=== PATIENT | female | born 1950 | race Caucasian/White ===

== ENCOUNTER → 2017-09-10 | Outpatient (CLI) | payer MEDICARE ==
[2016-10-05 08:57] VITALS: BP 150/79
[~2017-09-10] MED LIST: HYDR-2678 PO; HYDR-2867 PO; IOHEXOL 180 MG/ML 10 ML VIAL. ONE; OMEP20CA9 PO; methylPREDNISolone ACETATE 40 MG/ML VIAL. ONE; methylPREDNISolone ACETATE 80 MG/ML VIAL. ONE
--- NOTE | 2017-09-10 19:05 | PAIN ---
DATE OF SERVICE: 09/10/2017 DIAGNOSES: Lumbar radiculopathy with lumbar degenerative disk disease, lumbar spondylosis. HISTORY OF PRESENT ILLNESS: The patient is a 67-year-old female who returns for followup status post lumbar epidural steroid injection x 1. The patient reports about 50% improvement overall, especially in the back. Still some pain in the right lower extremity, mostly in the anterior thigh, medial thigh, into the lower leg medially and some on the posterior leg with some cramping as well, but much better than prior to the first injection. The patient reports it is a 9 on a scale of 10 at its worst, a 6 on average and a 5 at its least, is a 5 today. The patient reports pain is tight, tingling, cramping, stabbing, becoming constant. Again did very well the first few weeks after the injection with increased activity, greater ease and comfort, was sleeping better, starting to awaken her from sleep again. Now, she lays on her right side, but she needs to reposition and get back to sleep after a couple of hours. The patient reports there is some cramping in the right leg as well. Reports no new motor or sensory deficits, no new bowel or bladder incontinence or other complaints. PHYSICAL EXAMINATION: VITAL SIGNS: The patient's blood pressure 140/82, pulse 72, respirations 18, temperature is 98.2 degrees Fahrenheit, height is 5 feet 1 inch, weighs 117 pounds. GENERAL: The patient is awake, alert, oriented, appropriate, very pleasant demeanor. HEENT: Head shows normocephalic, atraumatic. Extraocular muscles are intact and symmetrical. Oral cavity: Mucous membranes moist and pink. Dentition is intact. NECK: Shows anterior throat supple without palpable lymphadenopathy noted. Swallow reflex is symmetrical. CHEST: Shows normal on inspection. Breath sounds are clear to auscultation bilaterally. HEART: Shows S1, S2 clear. No murmurs auscultated. ABDOMEN: Soft, nontender, nondistended. No palpable organomegaly is noted. BACK: Shows spine grossly in midline. Normal appearing thoracic kyphosis and lumbar lordotic curvature. Lumbar paraspinous muscle shows symmetrical on inspection with palpation shows some moderate tenderness bilaterally, but only diffusely with palpation. No radiation, no asymmetry. The patient has good rotational motion both laterally as well as extension and flexion without significant difficulty. No tenderness over the sacrum or sacroiliac regions. EXTREMITIES: Lower extremities show deep tendon reflexes 2+ in the patellar, 1+ tendo calcaneus tendons. Motor exam is approximately 4 on a scale of 5 with right dorsiflexion, extension, 5/5 on the left. Peripheral pulses are 1+ posterior tibial. No peripheral edema is noted bilaterally. Options were discussed with the patient. The patient's old chart was reviewed as her current medication regimen and updated. Current review of systems is updated today as well. We will proceed with a second in the series of lumbar epidural steroid injection with fluoroscopic guidance. Risks were again discussed including, but not limited to bleeding, infection, possibility of epidural hematoma, subsequent neurologic compromise, dural puncture, headaches, spinal cord and/or nerve damage, side effects of steroid medication and poor results regarding pain control. The patient understands and wished to proceed. The patient will return to clinic in approximately 2 weeks for followup. She was counseled on return appointment, activity level and side effects to be aware of. DIAGNOSES: Lumbar radiculopathy with lumbar spondylosis, lumbar degenerative disk disease. PROCEDURES: Lumbar epidural steroid injection, translaminar approach L3-L4 level using C-arm fluoroscopic guidance under sterile prep and drape using local anesthetic. MEDICATION INJECTED: A total of 120 mg Depo-Medrol plus 10 mL preservative-free normal saline and 2 mL of Isovue for contrast. CONDITION AT DISCHARGE: Stable. The patient tolerated procedure well, had no complications. ALYSA GOMES MD DR: REJI/kerwin JOB#: [id number] / [id number]
== END ==
LOC: PNCL 09:20
PROVIDERS: ATTEND Anesthesiology
DX: M47.26 Other spondylosis with radiculopathy, lumbar region (principal); M51.36 Other intervertebral disc degeneration, lumbar region; I10 Essential (primary) hypertension; K21.9 Gastro-esophageal reflux disease without esophagitis; M19.90 Unspecified osteoarthritis, unspecified site; Z98.890 Other specified postprocedural states; F17.200 Nicotine dependence, unspecified, uncomplicated; Z86.19 Personal history of other infectious and parasitic diseases
CPT/HCPCS: 62323; J1030; J1040

== ENCOUNTER 2018-07-03 22:02 | Inpatient (IN) | payer MEDICARE ==
[~2018-07-03] VITALS: Ht 154.9 cm; Wt 52.2 kg
[~2018-07-03 22:02] MED LIST changes: -IOHEXOL 180 MG/ML 10 ML VIAL. ONE; -methylPREDNISolone ACETATE 40 MG/ML VIAL. ONE; -methylPREDNISolone ACETATE 80 MG/ML VIAL. ONE
[2018-07-03 22:39] LABS: BASO # 0.1 x10^3/uL (0.0-0.2); BASO % 1 % (0-3); EOS # 0.2 x10^3/uL (0.0-0.7); EOS % 2 % (0-3); HEMATOCRIT 39.9 % (36.0-47.0); HEMOGLOBIN 14.2 g/dL (12.0-15.5); LYMPH % 37 % (24-48); MEAN CORPUSCULAR HEMOGLOBIN 31 pg (25-35); MEAN CORPUSCULAR HGB CONC 36 g/dL (31-37); MEAN CORPUSCULAR VOLUME 88 fL (79-100); MONO # 0.7 x10^3/uL (0.0-1.1); MONO % 9 % (0-9); NEUT # 4.2 x10^3uL (1.8-7.7); NEUT % 52 % (31-73); PLATELET COUNT 223 x10^3/uL (140-400); RED BLOOD COUNT 4.54 x10^6/uL (3.50-5.40); RED CELL DISTRIBUTION WIDTH 12.9 % (11.5-14.5); WHITE BLOOD COUNT 8.1 x10^3/uL (4.0-11.0)
[2018-07-03 22:48] LABS: PROTHROMBIN TIME PATIENT 13.5 SEC (11.7-14.0)
[2018-07-03 22:58] LABS: ALBUMIN 3.4 g/dL (3.4-5.0); ALBUMIN/GLOBULIN RATIO 0.7 (1.0-1.7); CALCIUM 9.4 mg/dL (8.5-10.1); CREATININE 0.8 mg/dL (0.6-1.0); GFR 71.1; MAGNESIUM 2.3 mg/dL (1.8-2.4); TOTAL BILIRUBIN 0.6 mg/dL (0.2-1.0); TOTAL PROTEIN 8.1 g/dL (6.4-8.2)
[2018-07-03 23:00] LABS: POTASSIUM 2.2 mmol/L (3.5-5.1)
[2018-07-03] MEDS ORDERED: POTASSIUM CHLORIDE 20 MEQ TABLET.ER. PO ONE (23:15)
--- NOTE | 2018-07-03 23:51 | PHYS DOC ---
Past Medical History Past Medical History: Hypertension, Hepatitis, Other Additional Past Medical Histor: chronic pain, cured hep c Past Surgical History: Other Alcohol Use: None Drug Use: Marijuana Adult General Chief Complaint Chief Complaint: CHEST PAIN HPI HPI Patient is a 68 year old female with past medical history of hepatitis C and anxiety who presents with 2 days of left-sided sharp chest pain. Patient notes she first experienced this pain yesterday while she was driving. The patient denies any association of the pain with exertion. The patient notes that the pain lasted for approximately 2 hours with a severity of 7 out of 10. The patient endorses nausea and shortness of breath. The patient denies radiation of the pain, diaphoresis, pleuritic pain, headache, abdominal pain, or lower extremity pain. The patient did not seek medical attention and noted that the pain resolved spontaneously. This evening she had a recurrence of the pain but notes that the pain was different this time in that it was less severe with a severity at a 4 out of 10 and it set of a sharp feeling it was more of a pressure today. The patient notes that the pain has since stopped. Patient notes she has had a lot of cramping in her bilateral legs for the last several weeks. Review of Systems Review of Systems Constitutional: Denies fever or chills [] Eyes: Denies change in visual acuity, redness, or eye pain [] HENT: Notes nasal congestion or sore throat [] Respiratory: Notes cough and shortness of breath [] Cardiovascular: No chest pain denies palpitations[] GI: Denies abdominal pain, vomiting, bloody stools or diarrhea [] : Denies dysuria or hematuria [] Musculoskeletal: Denies back pain or joint pain. Notes cramping [] Integument: Denies rash or skin lesions [] Neurologic: Denies headache, focal weakness or sensory changes [] Complete systems were reviewed and found to be within normal limits, except as documented in this note. Current Medications Current Medications Current Medications Medications (Trade) Dose Ordered Sig/Ritesh Start Time Stop Time Status Last Admin Dose Admin Potassium Chloride (Klor-Con) 60 meq 1X ONCE 07/03/18 23:15 07/03/18 23:16 DC 07/03/18 23:15 60 MEQ Allergies Allergies Physical Exam Physical Exam Constitutional: Well developed, well nourished, no acute distress, non-toxic appearance. [] HENT: Normocephalic, atraumatic, bilateral external ears normal, oropharynx moist, no oral exudates, nose normal. [] Eyes: PERRL, EOMI, conjunctiva normal, no discharge. [] Neck: Normal range of motion, no tenderness, supple, no stridor. [] Cardiovascular:Heart rate regular rhythm, no murmur [] Lungs & Thorax: Bilateral breath sounds clear to auscultation, denies chest wall tenderness to palpation[] Abdomen: Bowel sounds normal, soft, no tenderness, no pulsatile masses. [] Skin: Warm, dry, no erythema, no rash. [] Back: No tenderness, no CVA tenderness. [] Extremities: No calf tenderness, ROM intact, no edema. [] Neurologic: Alert and oriented X 3, normal motor function, normal sensory function, no focal deficits noted. [] Psychologic: Affect normal, judgement normal, mood normal. [] Current Patient Data Vital Signs Vital Signs Date Time Temp Pulse Resp B/P (MAP) Pulse Ox O2 Delivery O2 Flow Rate FiO2 07/03/18 23:26 78 18 112/76 (88) 99 07/03/18 22:11 97.9 Room Air 97.9 Lab Values Laboratory Tests Test 07/03/18 22:30 White Blood Count 8.1 x10^3/uL (4.0-11.0) Red Blood Count 4.54 x10^6/uL (3.50-5.40) Hemoglobin 14.2 g/dL (12.0-15.5) Hematocrit 39.9 % (36.0-47.0) Mean Corpuscular Volume 88 fL (79-100) Mean Corpuscular Hemoglobin 31 pg (25-35) Mean Corpuscular Hemoglobin Concent 36 g/dL (31-37) Red Cell Distribution Width 12.9 % (11.5-14.5) Platelet Count 223 x10^3/uL (140-400) Neutrophils (%) (Auto) 52 % (31-73) Lymphocytes (%) (Auto) 37 % (24-48) Monocytes (%) (Auto) 9 % (0-9) Eosinophils (%) (Auto) 2 % (0-3) Basophils (%) (Auto) 1 % (0-3) Neutrophils # (Auto) 4.2 x10^3uL (1.8-7.7) Lymphocytes # (Auto) 3.0 x10^3/uL (1.0-4.8) Monocytes # (Auto) 0.7 x10^3/uL (0.0-1.1) Eosinophils # (Auto) 0.2 x10^3/uL (0.0-0.7) Basophils # (Auto) 0.1 x10^3/uL (0.0-0.2) Prothrombin Time 13.5 SEC (11.7-14.0) Prothrombin Time INR 1.1 (0.8-1.1) D-Dimer (Annamarie) 0.45 ug/mlFEU (0.00-0.50) Sodium Level 140 mmol/L (136-145) Potassium Level 2.2 mmol/L (3.5-5.1) *L Chloride Level 98 mmol/L (98-107) Carbon Dioxide Level 35 mmol/L (21-32) H Anion Gap 7 (6-14) Blood Urea Nitrogen 8 mg/dL (7-20) Creatinine 0.8 mg/dL (0.6-1.0) Estimated GFR (Cockcroft-Gault) 71.1 BUN/Creatinine Ratio 10 (6-20) Glucose Level 93 mg/dL (70-99) Calcium Level 9.4 mg/dL (8.5-10.1) Magnesium Level 2.3 mg/dL (1.8-2.4) Total Bilirubin 0.6 mg/dL (0.2-1.0) Aspartate Amino Transferase (AST) 22 U/L (15-37) Alanine Aminotransferase (ALT) 16 U/L (14-59) Alkaline Phosphatase 68 U/L (46-116) Creatine Kinase 79 U/L (26-192) Troponin I Quantitative < 0.017 ng/mL (0.000-0.055) NL-Puh-R-Type Natriuretic Peptide 139 pg/mL (0-124) H Total Protein 8.1 g/dL (6.4-8.2) Albumin 3.4 g/dL (3.4-5.0) Albumin/Globulin Ratio 0.7 (1.0-1.7) L Lipase 184 U/L (73-393) Laboratory Tests 07/03/18 22:30 Laboratory Tests 07/03/18 22:30 EKG EKG @2224 NSR, rate 71, QRS 108, QTc 481, SC 198. Widespread U waves noted most significant in anterior leads. No acute ischemic changes noted.[] Radiology/Procedures Radiology/Procedures PA&Lateral chest x-ray (preliminary interpretation by ED physician)- evidence of mild bibasilar atelectasis, no infiltrates seen.[] Course & Med Decision Making Course & Med Decision Making 68-year-old female with 2 days of left sided chest pain. Patient notes pain started yesterday while she was driving lasted for 2 hours was described as sharp with no association to exertion. Patient also denies any radiation of the pain and diaphoresis, or pleuritic pain. Patient then had another episode of chest pain this evening which she said was less severe and describes it more as a pressure. Patient not currently having chest pain on arrival to the ED. Patient also endorses a recent history of a lot of cramping in her legs. Labs collected and reviewed. Potassium was found to be 2.2. Patient was given 60 mEq of oral potassium. Slight elevation in BNP. First troponin negative. D-dimer negative. EKG does not show any evidence of acute ischemia but does show mild prolongation in QT and U waves consistent with hypokalemia. Patient requiring admission for further evaluation and treatment. Discussed with Dr. Ba who is in agreement with admission. Discussed findings and plan with patient, who acknowledge understanding and agreement. [] Dragon Disclaimer Dragon Disclaimer This electronic medical record was generated, in whole or in part, using a voice recognition dictation system. Departure Departure Impression: Primary Impression: Chest pain Additional Impression: Hypokalemia Disposition: ADMITTED INPATIENT Admitting Physician: Naz Ba Condition: STABLE Referrals: NAZ BA MD (PCP) Scripts No Active Prescriptions or Reported Meds Problem Qualifiers Primary Impression: Chest pain Chest pain type: unspecified Qualified Codes: R07.9 - Chest pain, unspecified FELICIANOSAKSHI DO Jul 03, 2018 23:51
[2018-07-04] MEDS ORDERED: ONDANSETRON PF 4 MG/2 ML VIAL. IV PRN (00:15)
[2018-07-04] MEDS ORDERED: fentaNYL PF VIAL 100 MCG/2 ML VIAL IV PRN (00:15)
[2018-07-04 02:00] VITALS: BP 148/68
[2018-07-04] MEDS ORDERED: NAPR220C4 PO (03:48)
[2018-07-04] MEDS ORDERED: AMLO10TA6 PO (03:48)
--- NOTE | 2018-07-04 06:15 | EKG ---
[facility] [address] [place] [address] Test Date: 2018-07-03 Test Time: 22:21:44 Pat Name: ERNA CHEUNG Department: Room: [facility] Gender: F Patient Services Assistant: : 1950 Requested By: SAKSHI FELICIANO Order Number: [id number] Reading MD: Alberto Grijalva Measurements Intervals [place] Rate: 71 P: 45 MA: 198 QRS: -41 QRSD: 108 T: 52 QT: 438 QTc: 481 Interpretive Statements SINUS RHYTHM ABNORMAL LEFT AXIS DEVIATION LEFT ANTERIOR FASCICULAR BLOCK PROLONGED QT ABNORMAL ECG No previous ECG available for comparison Electronically Signed On 07-08-2018 10:39:07 CDT by Alberto Grijalva
[2018-07-04 07:00] VITALS: BP 103/83
--- NOTE | 2018-07-04 08:04 | RAD ---
Chest, 2 views, 07/04/2018: HISTORY: Shortness of breath The heart size and pulmonary vascularity are normal. There is calcific plaquing of the aorta. No pulmonary infiltrate is seen. There is no evidence of pleural fluid. Mild spurring is present in the spine. IMPRESSION: No acute cardiopulmonary abnormality is detected. Electronically signed by: Dario Ramos MD (07/04/2018 8:01 AM) [facility]
[2018-07-04] MEDS ORDERED: HYDROcodone/APAP 5/325MG 1 TAB TABLET PO PRN (08:45)
[2018-07-04 09:01] LABS: CREATININE 0.7 mg/dL (0.6-1.0)
--- NOTE | 2018-07-04 09:05 | HP ---
ADMIT DATE: 07/03/2018 CHIEF COMPLAINT AND HISTORY OF PRESENT ILLNESS: This 68-year-old white female is well known to me, followup in the office. The patient presented to the Emergency Room with sharp, intermittent chest pain going on for the entire week off and on. She feels like it can last up to a couple of hours at a time. It is not associated with any other cardiac symptoms such as shortness of breath, dizziness, sweatiness or nausea. It seems to be more likely to happen when she gets upset by one of her family members and is going through a phenomenal amount of stress at home. She denies that there is any relationship to breathing with it. She has not had a cough, shortness of breath, anything else with this. She was seen in the Emergency Room and admitted with the chest pain, but predominantly for a potassium of 2.2, which I have no good explanation for this. The patient denies any nausea, vomiting or diarrhea leading up to this and she takes no medicines at home that normally would cause hypokalemia. PAST MEDICAL HISTORY: The patient's past medical history is remarkable for hypertension, hepatitis C and some chronic back pain. MEDICATIONS: Brought with the patient, listed on the computer and have been addressed. ALLERGIES: She has no known drug allergies. SOCIAL HISTORY: She does occasionally use marijuana. She does not use tobacco or alcohol. She is . FAMILY HISTORY: Noncontributory. REVIEW OF SYSTEMS: As mentioned above. PHYSICAL EXAMINATION: GENERAL: She is a well-developed, well-nourished white female, in no acute distress. She is emotional. VITAL SIGNS: Stable. She is afebrile. HEAD, EYES, EARS, NOSE AND THROAT: Remarkable for glasses. NECK: Supple without bruit or thyromegaly. CHEST: Clear to auscultation and percussion. HEART: Regular rate and rhythm without S3, S4, or murmur. ABDOMEN: Soft, nontender, without hepatosplenomegaly or masses. EXTREMITIES: Without cyanosis, clubbing or edema. NEUROLOGIC: She is intact. LABORATORY DATA: Initial lab work was is remarkable for potassium of 2.2. She has had three troponins that are negative. BNP was 139. Clotting tests are in normal limits. CBC was normal. Chest x-ray on admission shows no acute cardiopulmonary abnormality is detected. IMPRESSION: 1. Sharp chest pain, likely noncardiac. 2. Hypokalemia, profound. 3. Hypertension. PLAN: Potassium replacement as well as following potassium levels has been instituted. I am going to ask Cardiology to see her for opinion, although again I do not feel this is probably cardiac in nature, but uncertain as to what it might be for sure causing the chest pain. NAZ BA MD DR: TYLER/kerwin JOB#: [id number] / [id number]
[2018-07-04 09:11] LABS: POTASSIUM 2.5 mmol/L (3.5-5.1)
--- NOTE | 2018-07-04 10:19 | PDOC2 ---
CARDIAC CONSULT DATE OF CONSULT Date of Consult DATE: 07/04/18 TIME: 10:16 REASON FOR CONSULT Reason for Consult: Chest pain REFERRING PHYSICIAN Referring Physician: Appl SOURCE Source: Chart review, Patient HISTORY OF PRESENT ILLNESS HISTORY OF PRESENT ILLNESS This is a pleasant 68 yo female admitted for complains of leg cramps and chest pain. Reports that in the last 2 days she has been having more leg and foot cramps. Reports that she eats "like a bird" so not much nutritional intake and she had some bouts of watery diarrhea but no vomiting. However she did start to develop this sharp pain to her left chest which is nonradiating but no reproducible with palpation. This lasted for hours then became on and off. This actually started after working in her yard the other day to which she also moved some 15 lb rocks. She felt suddenly drained after that. She also had a bout of nausea. No jaw or arm pain and no complains of dizziness or palpitations. In the last few days she did noticed that walking in her long driveway to go to the mail box, she had to stop in between just to catch her breath. Denies any past CAD, VTE, arrhythmias, falls or any recent injury. She does take aleve 500 mg po bid for her arthritis and does not take any H2 juan or PPI. She admits that she is stressed out re family dynamics and she was recently started on zoloft so she thought that her symptoms is from that medicine. PAST MEDICAL HISTORY Cardiovascular: HTN, Other (hx of rheumatic heart fever) CENTRAL NERVOUS SYSTEM: Other (No pertinent history) GI: GERD Heme/Onc: No pertinent hx Hepatobiliary: Hep A/B/C (C treated 6 months ago) Psych: Anxiety, Depression Musculoskeletal: Osteoarthritis Rheumatologic: No pertinent hx Infectious disease: No pertinent hx ENT: No pertinent hx Renal/: No pertinent hx Endocrine: Other (thyroid disease unknown) Dermatology: No pertinent hx PAST SURGICAL HISTORY Past Surgical History: Arthroscopy (right leg repair), Other (?partial thyroidectomy?) FAMILY HISTORY Family History noncontributory to CV SOCIAL HISTORY Smoke: No ALCOHOL: none Drugs: Marijuana Lives: Alone CURRENT MEDICATIONS CURRENT MEDICATIONS Current Medications Medications (Trade) Dose Ordered Sig/Ritesh Route PRN Reason Start Time Stop Time Status Last Admin Dose Admin Potassium Chloride (Klor-Con) 60 meq 1X ONCE PO 07/03/18 23:15 07/03/18 23:16 DC 07/03/18 23:15 ALLERGIES ALLERGIES: Coded Allergies: No Known Drug Allergies (Unverified , 10/05/16) ROS Review of System 14 point ROS evaluated with pertinent positives noted per HPI PHYSICAL EXAM General: Alert, Oriented X3, Cooperative, No acute distress HEENT: Atraumatic, Mucous membr. moist/pink Lungs: Clear to auscultation, Normal air movement Heart: Regular rate (SR), Normal S1, Normal S2, Other (3/6 systolic murmur to RUTHIE and 2/6 systolic murmur to LLS border) Abdomen: Soft, No tenderness Extremities: No cyanosis, No edema Skin: No breakdown, No significant lesion Neuro: Normal speech, Sensation intact Psych/Mental Status: Mental status NL, Mood NL MUSCULOSKELETAL: Osteoarthritic changes both hands VITALS VITALS Vital Signs Date Time Temp Pulse Resp B/P (MAP) Pulse Ox O2 Delivery O2 Flow Rate FiO2 07/04/18 07:00 97.9 69 18 103/83 (90) 96 Room Air 97.9 LABS Lab: Laboratory Tests Test 07/03/18 22:30 07/04/18 03:00 07/04/18 07:00 White Blood Count 8.1 x10^3/uL (4.0-11.0) Red Blood Count 4.54 x10^6/uL (3.50-5.40) Hemoglobin 14.2 g/dL (12.0-15.5) Hematocrit 39.9 % (36.0-47.0) Mean Corpuscular Volume 88 fL (79-100) Mean Corpuscular Hemoglobin 31 pg (25-35) Mean Corpuscular Hemoglobin Concent 36 g/dL (31-37) Red Cell Distribution Width 12.9 % (11.5-14.5) Platelet Count 223 x10^3/uL (140-400) Neutrophils (%) (Auto) 52 % (31-73) Lymphocytes (%) (Auto) 37 % (24-48) Monocytes (%) (Auto) 9 % (0-9) Eosinophils (%) (Auto) 2 % (0-3) Basophils (%) (Auto) 1 % (0-3) Neutrophils # (Auto) 4.2 x10^3uL (1.8-7.7) Lymphocytes # (Auto) 3.0 x10^3/uL (1.0-4.8) Monocytes # (Auto) 0.7 x10^3/uL (0.0-1.1) Eosinophils # (Auto) 0.2 x10^3/uL (0.0-0.7) Basophils # (Auto) 0.1 x10^3/uL (0.0-0.2) Prothrombin Time 13.5 SEC (11.7-14.0) Prothromb Time International Ratio 1.1 (0.8-1.1) D-Dimer (Annamarie) 0.45 ug/mlFEU (0.00-0.50) Sodium Level 140 mmol/L (136-145) 144 mmol/L (136-145) Potassium Level 2.2 mmol/L (3.5-5.1) 2.5 mmol/L (3.5-5.1) Chloride Level 98 mmol/L (98-107) 102 mmol/L (98-107) Carbon Dioxide Level 35 mmol/L (21-32) 35 mmol/L (21-32) Anion Gap 7 (6-14) 7 (6-14) Blood Urea Nitrogen 8 mg/dL (7-20) 8 mg/dL (7-20) Creatinine 0.8 mg/dL (0.6-1.0) 0.7 mg/dL (0.6-1.0) Estimated GFR (Cockcroft-Gault) 71.1 83.0 BUN/Creatinine Ratio 10 (6-20) Glucose Level 93 mg/dL (70-99) 96 mg/dL (70-99) Calcium Level 9.4 mg/dL (8.5-10.1) 9.0 mg/dL (8.5-10.1) Magnesium Level 2.3 mg/dL (1.8-2.4) Total Bilirubin 0.6 mg/dL (0.2-1.0) Aspartate Amino Transf (AST/SGOT) 22 U/L (15-37) Alanine Aminotransferase (ALT/SGPT) 16 U/L (14-59) Alkaline Phosphatase 68 U/L (46-116) Creatine Kinase 79 U/L (26-192) Troponin I Quantitative < 0.017 ng/mL (0.000-0.055) < 0.017 ng/mL (0.000-0.055) < 0.017 ng/mL (0.000-0.055) FY-Yuh-J-Type Natriuretic Peptide 139 pg/mL (0-124) Total Protein 8.1 g/dL (6.4-8.2) Albumin 3.4 g/dL (3.4-5.0) Albumin/Globulin Ratio 0.7 (1.0-1.7) Lipase 184 U/L (73-393) Triglycerides Level 142 mg/dL (0-150) Cholesterol Level 245 mg/dL (0-200) LDL Cholesterol, Calculated 168 mg/dL (0-100) VLDL Cholesterol, Calculated 28 mg/dL (0-40) Non-HDL Cholesterol Calculated 196 mg/dL (0-129) HDL Cholesterol 49 mg/dL (40-60) Cholesterol/HDL Ratio 5.0 ASSESSMENT/PLAN ASSESSMENT/PLAN 1. Chest pain: mixed features. Trop series nml. EKG SR with LAFB/first degree AV block 2. Hypokalemia/leg cramps: possibly from recent diarrhea and poor nutrition 3. HTN: controlled 4. HLP: new 5. Marijuana use: pt reports using this for her "anxiety and nightmares" 6. Chronic NSAID therapy: defer to PCP 7. Murmur 8. Hx of GERD Recommendations 1. Discussed with pt the need for MPI and would likely to have outpt MPI but will be will to have this done tomorrow as an inpt if TTE showed any significant changes. 2. Start on statin. 3. Tele with SB episodes but no pauses and positive for u wave marking low K. Replace K. Discussed increasing food ingestion. Dietitian consult. 4. H2 juan or PPI, defer to PCP MIGDALIA CRANE [employer] Jul 04, 2018 10:19
[2018-07-04] MEDS: ASPIRIN ENTERIC COATED 81 MG TABLET.DR. PO SCH (10:27)
[2018-07-04] MEDS: PANTOPRAZOLE 40 MG TABLET.DR. PO SCH (10:27)
[2018-07-04] MEDS: NAPROXEN 250 MG TABLET PO SCH (10:28)
[2018-07-04] MEDS: amLODIPine BESYLATE 10 MG TABLET PO SCH (10:28)
[2018-07-04] MEDS: POTASSIUM CHLORIDE 20 MEQ TABLET.ER. PO SCH ×3 (10:29→20:52)
[2018-07-04 11:00] VITALS: BP 136/60
--- NOTE | 2018-07-04 14:47 | CARD ---
MR#: [id number] Date of Study: 07/04/2018 Ordering Physician: MIGDALIA CRANE, Referring Physician: NAZ BA Tech: Flor Banegas, [facility] APPROVED REPORT EXAM: Two-dimensional and M-mode echocardiogram with Doppler and color Doppler. Other Information Quality : AverageHR: 65bpm Rhythm : NSR INDICATION Chest Pain 2D DIMENSIONS RVDd2.5 (2.9-3.5cm)IVSd0.9 (0.7-1.1cm) Aortic Root(2D)3.2 (2.0-3.7cm)LVDd4.7 (3.9-5.9cm) LVOT Diameter1.9 (1.8-2.4cm)PWd0.8 (0.7-1.1cm) LVDs3.4 (2.5-4.0cm)FS (%) 27.2 % SV54.0 mlLVEF(%)53.0 (>50%) Aortic Valve AoV Peak Bg.148.1cm/sAoV VTI26.6cm AO Peak GR.8.8mmHgLVOT Peak Bg.126.1cm/s AO Mean GR.4mmHgAVA (VMAX)2.40cm2 SANTA (VTI)2.21yx8BA P 1/2 Isbn256jh Mitral Valve MV E Eyzazdhv00.9cm/sMV E Peak Gr.3mmHg MV DECEL [id number] A Zvmaedit76.7cm/s MV E Mean Gr.1mmHgE/A Ratio0.8 MV A Vwxyvvve27ah Pulmonary Valve PV Peak Mzvxesmy174.5cm/s Tricuspid Valve TR P. Izlqvhov771oq/sRAP RKTTAAJM2gsAj TR Peak Gr.50kgLbPDDI52ehRq LEFT VENTRICLE The left ventricle is normal size. There is normal left ventricular wall thickness. The left ventricu lar systolic function is normal. The Ejection Fraction is 55-60%. There is normal LV segmental wall m otion. Transmitral Doppler flow pattern is Grade I-abnormal relaxation pattern. RIGHT VENTRICLE The right ventricle is normal size. There is normal right ventricular wall thickness. The right ventr icular systolic function is normal. ATRIA The left atrium size is normal. The right atrium size is normal. The interatrial septum is intact wit h no evidence for an atrial septal defect or patent foramen ovale as noted on 2-D or Doppler imaging. AORTIC VALVE The aortic valve is thickened but opens well. The aortic valve is trileaflet. Doppler and Color Flow revealed mild aortic regurgitation. There is no significant aortic valvular stenosis. MITRAL VALVE The mitral valve is normal in structure and function. There is no evidence of mitral valve prolapse. There is no mitral valve stenosis. Doppler and Color Flow revealed no mitral valve regurgitation note d. TRICUSPID VALVE The tricuspid valve is normal in structure and function. Doppler and Color Flow revealed trace tricus pid regurgitation. The PA pressure was estimated at 18 mmHg. There is no tricuspid valve prolapse or vegetation. There is no tricuspid valve stenosis. PULMONIC VALVE The pulmonary valve is normal in structure and function. Doppler and Color Flow revealed no pulmonic valvular regurgitation. There is no pulmonic valvular stenosis. GREAT VESSELS The aortic root is mildly enlarged. The ascending aorta is Mildly dilated. PERICARDIAL EFFUSION There is no evidence of significant pericardial effusion. Critical Notification Critical Value: No <Conclusion> The left ventricular systolic function is normal. The Ejection Fraction is 55-60%. There is normal LV segmental wall motion. Transmitral Doppler flow pattern is Grade I-abnormal relaxation pattern. Mild aortic regurgitation. Trace tricuspid regurgitation. The PA pressure was estimated at 18 mmHg. There is no evidence of significant pericardial effusion. Signed by : Alberto Grijalva, Electronically Approved : 07/04/2018 14:46:36
[2018-07-04 15:00] VITALS: BP 141/68
[2018-07-04 19:24] VITALS: BP 140/68
[2018-07-04] MEDS ORDERED: ATORVASTATIN CALCIUM 20 MG TABLET PO SCH (21:00)
[2018-07-04 23:16] VITALS: BP 135/64
[2018-07-05 03:39] VITALS: BP 154/83
[2018-07-05 04:53] LABS: CALCIUM 8.7 mg/dL (8.5-10.1); CREATININE 0.7 mg/dL (0.6-1.0); POTASSIUM 3.8 mmol/L (3.5-5.1)
[2018-07-05 07:00] VITALS: BP 156/64
[2018-07-05] MEDS ORDERED: REGADENOSON 0.4 MG/5 ML DISP.SYRIN. IV ONE (08:30)
[2018-07-05] MEDS ORDERED: AMINOPHYLLINE 250 MG/10 ML VIAL. IVP ONE (10:00)
[2018-07-05] MEDS: PANTOPRAZOLE 40 MG TABLET.DR. PO SCH (10:30)
[2018-07-05] MEDS: amLODIPine BESYLATE 10 MG TABLET PO SCH (10:30)
[2018-07-05] MEDS: ASPIRIN ENTERIC COATED 81 MG TABLET.DR. PO SCH (10:30)
[2018-07-05] MEDS: NAPROXEN 250 MG TABLET PO SCH (10:30)
[2018-07-05] MEDS: POTASSIUM CHLORIDE 20 MEQ TABLET.ER. PO SCH (10:31)
[2018-07-05 11:00] VITALS: BP 139/69
--- NOTE | 2018-07-05 11:15 | PDOC ---
Provider Note Provider Note [id number] DALI SANTORO MD Jul 05, 2018 11:15
--- NOTE | 2018-07-05 11:42 | PDOC ---
PROGRESS NOTES Subjective Subjective Patient apparently had a reaction to Lexiscan earlier today, presently feeling better Objective Objective Vital Signs Date Time Temp Pulse Resp B/P (MAP) Pulse Ox O2 Delivery O2 Flow Rate FiO2 07/05/18 10:30 74 156/64 07/05/18 08:00 Room Air 07/05/18 07:00 97.7 16 97 97.7 Intake and Output 07/05/18 07:00 Intake Total 460 ml Output Total 500 ml Balance -40 ml Intake Oral 460 ml Output Urine Total 500 ml # Voids 1 # Bowel Movements 1 Physical Exam Abdomen: Soft, No tenderness Heart: Regular rate (SR), Normal S1, Normal S2, Other (3/6 systolic murmur to RUTHIE and 2/6 systolic murmur to LLS border) Extremities: No cyanosis, No edema General: Alert, Oriented X3, Cooperative, No acute distress HEENT: Atraumatic, Mucous membr. moist/pink Lungs: Clear to auscultation, Normal air movement Neuro: Normal speech, Sensation intact Psych/Mental Status: Mental status NL, Mood NL Skin: No breakdown, No significant lesion Assessment Assessment 1. Chest pain: mixed features. Myocardial infarction has been ruled out. 2-D echo showed normal LV systolic function without any wall motion abnormalities. Lexiscan nuclear stress test did not show any significant ischemia. Okay for discharge from cardiac standpoint. 2. Hypokalemia/leg cramps: possibly from recent diarrhea and poor nutrition: Replaced orally 3. HTN: controlled 4. HLP: Statins Plan Plan of Care Problems Medical Problems: (1) Chest pain Status: Acute (2) Hypokalemia Status: Acute Comment Review of Relevant I have reviewed the following items roopa (where applicable) has been applied. Labs Laboratory Tests Test 07/05/18 04:00 Sodium Level 144 mmol/L (136-145) Potassium Level 3.8 mmol/L (3.5-5.1) Chloride Level 108 mmol/L (98-107) Carbon Dioxide Level 30 mmol/L (21-32) Anion Gap 6 (6-14) Blood Urea Nitrogen 11 mg/dL (7-20) Creatinine 0.7 mg/dL (0.6-1.0) Estimated GFR (Cockcroft-Gault) 83.0 Glucose Level 92 mg/dL (70-99) Calcium Level 8.7 mg/dL (8.5-10.1) Medications Current Medications Aminophylline (Aminophylline) 125 mg 1X ONCE IVP Last administered on at 10:00; Start 07/05/18 at 10:00; Stop 07/05/18 at 10:22; Status DC Atorvastatin Calcium (Lipitor) 20 mg QHS PO Last administered on 07/04/18at 20: 53; Start 07/04/18 at 21:00 Lorazepam (Ativan) 1 mg 1X ONCE IV Last administered on 07/05/18at 10:22; Start 07/05/18 at 10:15; Stop 07/05/18 at 10:22; Status DC Regadenoson (Lexiscan) 0.4 mg 1X ONCE IV Last administered on 07/05/18at 09:40 ; Start 07/05/18 at 08:30; Stop 07/05/18 at 08:36; Status DC Vitals/I & O Vital Sign - Last 24 Hours 07/04/18 07/04/18 07/04/18 07/04/18 15:00 19:24 20:00 23:16 Temp 97.7 98.2 97.9 97.7 98.2 97.9 Pulse 74 72 57 Resp 18 18 18 B/P (MAP) 141/68 (92) 140/68 (92) 135/64 (87) Pulse Ox 96 96 95 O2 Delivery Room Air Room Air Room Air Room Air 07/05/18 07/05/18 07/05/18 07/05/18 03:39 07:00 08:00 10:30 Temp 97.7 97.7 97.7 97.7 Pulse 88 74 74 Resp 18 16 B/P (MAP) 154/83 (106) 156/64 (94) 156/64 Pulse Ox 98 97 O2 Delivery Room Air Room Air Room Air Intake and Output 07/04/18 07/04/18 07/05/18 15:00 23:00 07:00 Intake Total 460 ml Output Total 500 ml Balance 460 ml -500 ml JOSE M GARRETT MD Jul 05, 2018 11:42
--- NOTE | 2018-07-05 13:08 | PN ---
DATE: 07/05/2018 SUBJECTIVE: The patient is sleeping. Vital signs are stable and she appears in no distress, with no dyspnea. She has had the cardiac scan or at least this is in progress, with no report available. Potassium is up to 3.8 and all labs look good. If her MPI is normal and Cardiology is comfortable, she could be discharged and followed as an outpatient, unless there are further problems apparent. No new medications and the potassium will be stopped, now that her recovery levels are normal. DALI SANTORO MD DR: CHAPITO/nts JOB#: [id number] / [id number]
--- NOTE | 2018-07-05 14:09 | RAD ---
MR#: [id number] Date of Study: 07/05/2018 Ordering Physician: MIGDALIA CRANE, Referring Physician: JOHNNY ESTRADA Tech: OCTAVIO Lindsay APPROVED REPORT Test Type: Pharmacological Stress Nurse/Tech: Shaye Case R.N. Test Indications: c/p, dyspnea on exertion Cardiac History: htn, COPD Medications: See Electronic Medical Record Medical History: See Electronic Medical Record Resting ECG: SR w/ inverted T waves in leads AVR, AVL, V1, V2 Resting Heart Rate: 67 bpm Resting Blood Pressure: 143/71mmHg Pretest Chest Pain: No chest pain Nurse/Tech Notes S1S2, lungs CTA Consent: The procedure was explained to the patient in lay terms. Informed consent was witnessed. David eout was entered into [employer]. History and Stress Test performed by OCTAVIO Lindsay Pharm. Details Pharmacologic stress testing was performed using 0.4mg per 5ml of regadenoson given intravenously ove r 7-10 seconds. Stress Symptoms SOB, H/A, nausea, flushed/ hot feeling, severe cramping and pain in both hands. hands contracted and could not be straightened out for about 10 minutes- pt was screaming in pain. Aminophylline 125mg ivp given. at first pt stated pain was worse but than her hands finally started to relax when messaged. called and notified Dr. Grijalva. 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 POST EXERCISE Reason for Termination: Infusion complete Max HR: 135 bpm Max Blood Pressure: 187/82mmHg Blood Pressure response to exercise: Normal blood pressure response during stress. Heart Rate response to exercise: wnl Chest Pain: Yes. some chest pain when her hands were cramping so bad Arrhythmia: No. ST Change: No. INTERPRETATION Stress EKG Conclusion: Baseline EKG showed sinus rhythm. No ischemic changes at peak stress. No arr hythmias. Imaging Protocol IMAGE PROTOCOL: Rest Tc-99m/stress Tc-99m 1 day Rest: Stress: Viability: Radiopharm.Tc99m SbhqvuvjnWp25t Sestamibi Dose12.4mCi 33.1mCi Duration 17min. 12min. Img Date 07/05/2018 07/05/2018 Inj-Img [id number]. 75min. Rest Admin Site:IV - Right AntecubitalAdministrator:OCTAVIO Lindsay Stress Admin Site: IV - Right AntecubitalAdministrator: OCTAVIO Lindsay STRESS DATA End Diast. Vol.47.0mlAv. Heart Rsjk944.0bpm End Syst. Vol.20.0mlCO Index BSA0.0L/min Myocardial Mass97.0gEject. Dhrqeuge11.0% Stress Rates Pk. Fill Rate4.53EDV/secLVtime Pk. Fill 152.64msec Pk. Empty Rate4.42ESV/secLVtime Pk. Eject80.86msec 10/16 Pk. Fill1.37EDV/sec Stress Scores Regional WT3.00Summed WT44.00 Regional WM0.00Summed WM14.00 Study quality was good. Left Ventricular size was Normal at Rest and Stress. Lung uptake was . Left Ventricular ejection fraction is 57%. The rest and stress images show normal perfusion, normal contraction and thickening. LV Perf. Quant 17 Seg. SSS0.00 17 Seg. SRS3.00 17 Seg. SDS0.00 Stress Defect Extent (% LAD)0.00Rest Defect Extent (% LAD)0.00Rev. Defect Extent (% LAD)0.00 Stress Defect Extent (% LCX) 0.00Rest Defect Extent (% LCX)0.00Rev. Defect Extent (% LCX)0.00 Stress Defect Extent (% RCA)0.00Rest Defect Extent (% RCA)0.00Rev. Defect Extent (% RCA)0.00 Stress Defect Extent (% QUETA)0.00Rest Defect Extent (% QUETA)0.00Rev. Defect Extent (% QUETA)0.00 Conclusion 1. Regadenoson cardioisotope stress test did not show any evidence of ischemia or infarct. 2. Normal left ventricular systolic function with ejection fraction calculated at 57%. 3. Low risk for cardiac events. Signed by : Alberto Grijalva, Electronically Approved : 07/05/2018 14:08:22
== END 2018-07-05 15:26 | disposition home or self-care (01) | DRG 206 ==
LOC: ER 22:02 → 6 SOUTH 23:59
PROVIDERS: ADMIT Family Medicine; ATTEND Family Medicine
DX: M94.0 Chondrocostal junction syndrome [Tietze] (principal); E87.6 Hypokalemia; E78.5 Hyperlipidemia, unspecified; F12.90 Cannabis use, unspecified, uncomplicated; F41.9 Anxiety disorder, unspecified; I10 Essential (primary) hypertension; I44.0 Atrioventricular block, first degree; K21.9 Gastro-esophageal reflux disease without esophagitis; M19.90 Unspecified osteoarthritis, unspecified site; F32.9 Major depressive disorder, single episode, unspecified; G89.29 Other chronic pain; M54.9 Dorsalgia, unspecified; R01.1 Cardiac murmur, unspecified; Z79.899 Other long term (current) drug therapy; Z88.8 Allergy status to other drugs, medicaments and biological substances
CPT/HCPCS: 36415; 71046; 78452; 80048; 80053; 80061; 82550; 83690; 83735; 83880; 84443; 84484; 85025; 85379; 85610; 93005; 93017; 93306; 96374; 96375; 96376; A9500; J0280; J2060; J2785; 99285-25